=== PATIENT | female | born 1965 | race Caucasian/White ===

== ENCOUNTER → 2017-11-28 16:02 | Outpatient (CLI) | payer MEDICARE, MEDICAID, SELFPAY ==
--- NOTE | 2017-11-28 16:11 | XR_ITS ---
XR knee RT 3V HISTORY: ITS.REASON: RT KNEE PAIN ORDERING PHYSICIAN: Henny Mccloud PATIENT AGE: 52 years FINDINGS: There are mild osteoarthritic changes of the medial compartment. No fracture or dislocation. No lytic or blastic change. IMPRESSION: Mild osteoarthritis of the medial compartment
--- NOTE | 2017-11-28 16:11 | XR_ITS ---
XR chest 2V HISTORY: Cough ITS.REASON: ABNORMAL LUNG SOUNDS ORDERING PHYSICIAN: Henny Mccloud PATIENT AGE: 52 years COMPARISON: 11/07/2016 FINDINGS: The cardiomediastinal silhouette and pulmonary vascularity are within normal limits. The lungs are clear without infiltrates, suspicious nodules, or pleural effusions. No acute bony abnormalities. IMPRESSION: Negative chest, no acute finding
== END ==
PROVIDERS: PCP Physician Assistant; Visit Provider Physician Assistant
DX: M25.561 Pain in right knee (principal); R09.89 Other specified symptoms and signs involving the circulatory and respiratory systems
CPT/HCPCS: 71046; 73562

== ENCOUNTER → 2018-02-27 09:00 | Outpatient (CLI) | payer MEDICARE, MEDICAID, SELFPAY ==
--- NOTE | 2018-02-27 09:22 | XR_ITS ---
XR foot RT min 3V HISTORY: Right the pain and swelling ITS.REASON: HTN,ARCELIA FOOT PAIN ORDERING PHYSICIAN: Henny Mccloud PATIENT AGE: 52 years COMPARISON: None FINDINGS: There is [id number] hallux nodules with mild osteoarthritic change of the first metatarsophalangeal joint. A small band of hyperostosis is present at the base and medial aspect of the second metatarsal. There is flexion at the second and third toes. Small calcaneal spur is present at 10 mm. IMPRESSION: Hallux valgus with bunion formation and osteoarthritis of the first MTP joint with flexion deformity of the second and third toes
--- NOTE | 2018-02-27 09:22 | XR_ITS ---
XR foot LT min 3V HISTORY: Foot pain and swelling ITS.REASON: ARCELIA FOOT PAIN ORDERING PHYSICIAN: Henny Mccloud PATIENT AGE: 52 years COMPARISON: None FINDINGS: Minimal hallux valgus with minimal hypertrophic change at the distal first metatarsal. Minimal hyperostosis at the base of the second metatarsal medially. No fracture or dislocation. There is a prominent calcaneal spur at 15 mm. No bony erosion. IMPRESSION: Minimal hallux valgus with hypertrophic change at the distal first metatarsal and minimal osteoarthritic change of the first metatarsophalangeal joint with calcaneal spur
[2018-02-27 09:29] LABS: Basophils % 0.5 % (0.1-2.0); Eosinophils # 0.2 K/mm3 (0.0-0.4); Eosinophils % 3.1 % (0.1-12.0); Hematocrit 39.9 % (37.0-47.0); Hemoglobin 13.1 g/dL (12.2-16.2); Lymphocytes # 1.6 K/mm3 (0.7-4.5); Lymphocytes % 28.6 K/mm3 (10-50); Mean Corpuscular HGB Conc 32.8 g/dL (31.8-35.4); Mean Corpuscular Hemoglobin 29.6 pg (27.0-31.2); Mean Corpuscular Volume 90.3 fl (81-99); Mean Platelet Volume 8.7 fl (7.4-10.4); Monocytes # 0.2 K/mm3 (0.1-1.0); Monocytes % 4.1 % (1.7-9.3); Neutrophils # 3.6 K/mm3 (1.8-7.8); Neutrophils % 63.7 % (37.0-80.0); Platelet Count 261 K/mm3 (142-424); Red Blood Count 4.41 M/mm3 (4.20-5.40); Red Cell Distribution Width 13.2 % (11.5-17.5); White Blood Count 5.7 K/mm3 (4.8-10.8)
[2018-02-27 09:45] LABS: Hemoglobin A1C 5.9 % (0.0-7.0)
[2018-02-27 10:16] LABS: Alanine Aminotransferase 70 U/L (12-78); Albumin Level 3.8 gm/dL (3.4-5.0); Albumin/Globulin Ratio 1.2 (1.1-1.8); Alkaline Phosphatase 71 U/L (46-116); Anion Gap 11.3 mEq/L (5-15); Aspartate Amino Transferase 22 U/L (15-37); Bilirubin,Total 0.9 mg/dL (0.2-1.0); Blood Urea Nitrogen 15 mg/dL (7-18); Calcium 9.2 mg/dL (8.5-10.1); Carbon Dioxide 29 mmol/L (21.0-32.0); Chloride 108 mmol/L (98-107); Chol/HDL Ratio 3.7 (1-3.5); Cholesterol 173 mg/dL (140-200); Creatinine,Serum 0.88 mg/dL (0.55-1.02); Estimated Glomerular Filt Rate 68 ml/min (>60); GFR (African American) 82 ML/MIN (>60); Globulin 3.3 gm/dl (1.3-3.2); Glucose 109 mg/dL (74-106); HDL Cholesterol 47 mg/dL (29-89); LDL Cholesterol 108 mg/dL (0-130); Phosphorous 4.1 mg/dL (2.4-4.9); Potassium 4.3 mmoL/L (3.5-5.1); Sodium 144 mmol/L (136-145); Thyroid Stimulating Hormone 4.25 uIU/ml (0.358-3.740); Total Protein,Serum 7.1 gm/dL (6.4-8.2); Triglycerides 90 mg/dL (30-200); VLDL Cholesterol 18 mg/dL (0-40)
[2018-02-28 14:53] LABS: Vitamin D 25 Hydroxy 20.5 ng/mL (30.0-100.0)
== END ==
PROVIDERS: Visit Provider Physician Assistant
DX: E78.00 Pure hypercholesterolemia, unspecified (principal); R73.9 Hyperglycemia, unspecified; R06.02 Shortness of breath; E55.9 Vitamin D deficiency, unspecified; I10 Essential (primary) hypertension; R53.83 Other fatigue; M79.671 Pain in right foot; M79.672 Pain in left foot
CPT/HCPCS: 36415; 73630; 80053; 80061; 82652; 83036; 83735; 83880; 84100; 84443; 85025

== ENCOUNTER 2021-03-23 11:01 | Emergency (ER) | payer MEDICARE, MEDICAID, SELFPAY ==
[2021-03-23 11:02] VITALS: BP 143/73; PULSE 56; RESP 18; TEMP 36.8; O2SAT 98; BMI 45.1
--- NOTE | 2021-03-23 12:00 | HMH.EDUTC ---
[facility] [place] Disposition Clinical Impression: Sinusitis Qualifiers: Sinusitis location: unspecified location Chronicity: chronic Qualified Code(s): J32.9 - Chronic sinusitis, unspecified Disposition: Home, Self-Care Condition on Discharge: Good Instructions: DI for Sinusitis Additional Instructions: Drink plenty of fluids. Take tylenol or ibuprofen for pain or fever. Take the medications as directed. Follow up with your regular doctor. GO TO THE ER FOR ANY WORSENING SYMPTOMS Prescriptions: Benzonatate [Tessalon Perle 100mg Cap] 100 mg PO TIDP PRN #30 cap PRN Reason: Cough Transmission Status: Received by [facility] Azithromycin [Z-Kristofer 250mg Tab*] 250 mg PO UD DOSE PK #6 tab Transmission Status: Received by [employer] Referrals: Yaima Lima APRN [Primary Care Provider] - Forms: Work/School Release Time of Disposition: 12:04 Medical Decision Making - Medical Records Medical records reviewed: No: I reviewed the patient's medical records. - Jaime Inquiry Pt receiving controlled substance: No Vital Signs: 03/23/21 11:02 03/23/21 12:06 Temperature 98.3 F 98.3 F Temperature Source Oral Pulse Rate 56 L Pulse Rate [Right] 56 L Respiratory Rate 18 18 Blood Pressure 143/73 H Blood Pressure [Right Arm] 143/73 H Blood Pressure Mean [Right Arm] 96 02 Sat by Pulse Oximetry 98 - Lab Data Lab results reviewed: Yes: I reviewed the patient's lab results. [facility] [place] HPI - General Stated complaint: sinus problem Time Seen by Provider: 03/23/21 12:01 Description of Symptoms (Recalled from Triage Doc. by RN): pt c/o head congestion and runny nose HEENT Symptoms (Recalled from RN notes): Yes Resp Symptoms (Recalled from RN notes): Yes Skin Symptoms (Recalled from RN notes): No MS Symptoms (Recalled from RN notes): No Functional Status (Recalled from RN notes): na - History of Present Illness Provider Complaint: She c/o 3 days of sinus congeston and sinus pressure. She states that she is getting a sinus infection. She refuses a covid test today. - Related Data Home Medications Medication Instructions Recorded Confirmed levothyroxine 25 mcg tablet PO 30 Days #30 tab 04/10/18 omeprazole 40 mg capsule,delayed 40 mg PO DAILY 04/10/18 release Previous Rx's Medication Instructions Recorded Cyclobenzaprine HCl [Flexeril 10mg 10 mg PO TID PRN #15 tablet 05/14/18 tablet] Etodolac [Etodolac 200mg Cap*] 200 mg PO Q6HP PRN #20 cap 05/14/18 Azithromycin [Z-Kristofer 250mg Tab*] 250 mg PO UD DOSE PK #6 tab 03/23/21 Benzonatate [Tessalon Perle 100mg 100 mg PO TIDP PRN #30 cap 03/23/21 Cap] Allergies Allergy/AdvReac Type Severity Reaction Status Date / Time codeine Allergy Verified 05/14/18 15:32 - Worker's Comp Is this a Worker's Comp case?: No [facility] History - Hepatitis A Screen Drug use history?: No High risk sexual behaviors?: No History of sexually transmitted infection?: No Currently employed?: No Childcare worker?: No Do you have indoor plumbing?: Yes Do you have electricity?: Yes Attestation statement:: This patient has been screened for Hepatitis A risk factors. I have reviewed the patient's past medical history: Yes Other Surgeries: Yes: Cholecystectomy, Hernia Repair, Tubal Ligation, Other Comment: stomach - Social History Smoking Status: Never smoker Alcohol Intake: never Alcohol Intake Frequency:: other Family Hx:: No significant family history ROS Obtained: Yes All systems reviewed & no additional complaints - Constitutional Constitutional: Denies chills, Denies fever(s), Reports poor appetite, Reports malaise - Eyes Eyes: Denies eye discharge - ENT Ears, Nose, Mouth, and Throat: Reports as per HPI - Cardiovascular Cardiovascular: Denies chest pain - Respiratory Respiratory: Denies chest congestion, Reports cough, Denies dyspnea, Denies stridor, Denies wheezing - Integumentary/Breasts Skin/Breast: Denies rash Phy
[2021-03-23 12:06] VITALS: BP 143/73; PULSE 56; RESP 18; TEMP 36.8; O2SAT 98
== END 2021-03-23 12:22 | disposition home or self-care (01) ==
PROVIDERS: Emergency Provider Nurse Practitioner Family; PCP Nurse Practitioner Family
DX: J32.9 Chronic sinusitis, unspecified (principal)
CPT/HCPCS: G0463; 99202

== ENCOUNTER 2021-04-13 11:57 | Emergency (ER) | payer MEDICARE, MEDICAID, SELFPAY ==
[2021-04-13 13:05] VITALS: BP 143/71; PULSE 63; RESP 18; TEMP 36.8; O2SAT 97; BMI 49.9
[2021-04-13 13:48] VITALS: BP 143/71; PULSE 63; RESP 18; TEMP 36.8; O2SAT 97
--- NOTE | 2021-04-13 14:13 | HMH.EDUTC ---
[facility] [place] Clinical Impression: Sinusitis Qualifiers: Sinusitis location: unspecified location Chronicity: unspecified Qualified Code(s): J32.9 - Chronic sinusitis, unspecified Disposition: Home, Self-Care Condition on Discharge: Good Instructions: Sinusitis, DI for Sinusitis Additional Instructions: *Monitor Temp, Over the counter Motrin or Tylenol as directed/as needed Tylenol every 4 hours and Motrin every 6 hours (as long as your family doctor has told you that you can take it) for fever or pain. and straight to ER if unable to lower temp less than 101.0 after medication given *Warm salt water gargles may help to soothe the throat *Throat Lozenges *Warm fluids like tea with honey may help to soothe the throat *Sleep elevated *Humidifier/Vaporizer Start antibiotics and take as prescribed Follow up IMMEDIATELY for new or worsening symptoms or no Noticeable improvement over the next 48-72 hours. 911 for difficulty breathing or swallowing Prescriptions: Amoxicillin/Potassium Clav [Augmentin 875-125 Tablet] 1 tab PO Q12H 7 Days #14 tab Transmission Status: Pending to [facility] Referrals: Yaima Lima APRN [Primary Care Provider] - As needed Medical Decision Making - Jaime Inquiry Pt receiving controlled substance: No Jaime was queried for this patient: No Vital Signs: 04/13/21 13:05 04/13/21 13:48 Temperature 98.3 F 98.3 F Temperature Source Oral Pulse Rate 63 Pulse Rate [Right Brachial] 63 Respiratory Rate 18 18 Blood Pressure 143/71 H Blood Pressure [Right Arm] 143/71 H Blood Pressure Mean [Right Arm] 95 Blood Pressure Source [Right Arm] Automatic Cuff Blood Pressure Position [Right Arm] Sitting 02 Sat by Pulse Oximetry 97 Oxygen Delivery Method Room Air [facility] - General Stated complaint: sinus congestion/pain Time Seen by Provider: 04/13/21 14:13 Mode of Arrival: Ambulatory Source of Information: Patient Limitations: No Limitations Description of Symptoms (Recalled from Triage Doc. by RN): PATIENT C/O SINUS CONGESTION AND COUGH X 1 WEEK HEENT Symptoms (Recalled from RN notes): Yes Resp Symptoms (Recalled from RN notes): Yes Skin Symptoms (Recalled from RN notes): No MS Symptoms (Recalled from RN notes): No Functional Status (Recalled from RN notes): WNL - History of Present Illness Provider Complaint: Patient states that she has been having sinus pain and pressure for over a week with cough States that she feels like she may have a sinus infection and wanted to get checked - Related Data Home Medications Medication Instructions Recorded Confirmed levothyroxine 25 mcg tablet PO 30 Days #30 tab 04/10/18 omeprazole 40 mg capsule,delayed 40 mg PO DAILY 04/10/18 release Previous Rx's Medication Instructions Recorded Cyclobenzaprine HCl [Flexeril 10mg 10 mg PO TID PRN #15 tablet 05/14/18 tablet] Etodolac [Etodolac 200mg Cap*] 200 mg PO Q6HP PRN #20 cap 05/14/18 Azithromycin [Z-Kristofer 250mg Tab*] 250 mg PO UD DOSE PK #6 tab 03/23/21 Benzonatate [Tessalon Perle 100mg 100 mg PO TIDP PRN #30 cap 03/23/21 Cap] Amoxicillin/Potassium Clav 1 tab PO Q12H 7 Days #14 tab 04/13/21 [Augmentin 875-125 Tablet] Allergies Allergy/AdvReac Type Severity Reaction Status Date / Time codeine Allergy Verified 05/14/18 15:32 - Worker's Comp Is this a Worker's Comp case?: No [facility] History - Hepatitis A Screen Drug use history?: No High risk sexual behaviors?: No History of sexually transmitted infection?: No Currently employed?: No Childcare worker?: No Do you have indoor plumbing?: Yes Do you have electricity?: Yes Attestation statement:: This patient has been screened for Hepatitis A risk factors. I have reviewed the patient's past medical history: Yes Other Surgeries: Yes: Cholecystectomy, Hernia Repair, Tubal Ligation, Other Comment: stomach - Social History Smoking Status: Never smoker Alcohol Intake: never Alcohol Intak
== END 2021-04-13 14:29 | disposition home or self-care (01) ==
PROVIDERS: Emergency Provider Nurse Practitioner; PCP Nurse Practitioner Family
DX: J32.9 Chronic sinusitis, unspecified (principal)
CPT/HCPCS: G0463; 99202

== ENCOUNTER 2021-05-23 16:39 | Emergency (ER) | payer MEDICARE, MEDICAID, SELFPAY ==
[2021-05-23 18:04] VITALS: BP 183/108; PULSE 43; RESP 18; TEMP 36.4; O2SAT 100; BMI 46.7
--- NOTE | 2021-05-23 18:27 | HMH.EDUTC ---
[facility] [place] Clinical Impression: Sinusitis Qualifiers: Sinusitis location: unspecified location Chronicity: acute Recurrence: non-recurrent Qualified Code(s): J01.90 - Acute sinusitis, unspecified Disposition: Home, Self-Care Condition on Discharge: Good Instructions: DI for Sinusitis Additional Instructions: Drink plenty of fluids. Take tylenol or ibuprofen for pain or fever. Take the medications as directed. Follow up with your regular doctor. GO TO THE ER FOR ANY WORSENING SYMPTOMS Prescriptions: Amoxicillin/Potassium Clav [Augmentin 875-125 Tablet] 1 tab PO Q12H 10 Days #20 tab Transmission Status: Received by [employer] predniSONE [Prednisone 20mg Tab] 20 mg PO BID 4 Days #8 tab Transmission Status: Received by [employer] Benzonatate [Tessalon Perle 100mg Cap] 100 mg PO TIDP PRN #30 cap PRN Reason: Cough Transmission Status: Received by [employer] Referrals: Yaima Lima APRN [Primary Care Provider] - Medical Decision Making - Medical Records Medical records reviewed: No: I reviewed the patient's medical records. - Jaime Inquiry Pt receiving controlled substance: No Vital Signs: 05/23/21 18:04 05/23/21 18:53 Temperature 97.6 F 97.6 F Temperature Source Oral Pulse Rate 46 L Pulse Rate [Left] 43 L Respiratory Rate 18 18 Blood Pressure 187/96 H Blood Pressure [Right Arm] 183/108 H Blood Pressure Mean [Right Arm] 133 02 Sat by Pulse Oximetry 100 - Lab Data Lab results reviewed: Yes: I reviewed the patient's lab results. [facility] [place] HPI - General Stated complaint: possible sinus infection Time Seen by Provider: 05/23/21 18:27 Mode of Arrival: Ambulatory Source of Information: Patient Limitations: No Limitations Description of Symptoms (Recalled from Triage Doc. by RN): pt c/o of cough, congestion and sinus pressure. pt thinks she has a sinus infection. HEENT Symptoms (Recalled from RN notes): Yes (sinus pressure and drainage) Resp Symptoms (Recalled from RN notes): Yes (cough) Skin Symptoms (Recalled from RN notes): No MS Symptoms (Recalled from RN notes): No Functional Status (Recalled from RN notes): na - History of Present Illness Provider Complaint: She states that she has had sinus congestion and a cough for the past 3 days. - Related Data Home Medications Medication Instructions Recorded Confirmed levothyroxine 25 mcg tablet PO 30 Days #30 tab 04/10/18 omeprazole 40 mg capsule,delayed 40 mg PO DAILY 04/10/18 release Previous Rx's Medication Instructions Recorded Cyclobenzaprine HCl [Flexeril 10mg 10 mg PO TID PRN #15 tablet 05/14/18 tablet] Etodolac [Etodolac 200mg Cap*] 200 mg PO Q6HP PRN #20 cap 05/14/18 Azithromycin [Z-Kristofer 250mg Tab*] 250 mg PO UD DOSE PK #6 tab 03/23/21 Benzonatate [Tessalon Perle 100mg 100 mg PO TIDP PRN #30 cap 03/23/21 Cap] Amoxicillin/Potassium Clav 1 tab PO Q12H 7 Days #14 tab 04/13/21 [Augmentin 875-125 Tablet] Amoxicillin/Potassium Clav 1 tab PO Q12H 10 Days #20 tab 05/23/21 [Augmentin 875-125 Tablet] Benzonatate [Tessalon Perle 100mg 100 mg PO TIDP PRN #30 cap 05/23/21 Cap] predniSONE [Prednisone 20mg 20 mg PO BID 4 Days #8 tab 05/23/21 Tab] Allergies Allergy/AdvReac Type Severity Reaction Status Date / Time codeine Allergy Verified 05/14/18 15:32 - Worker's Comp Is this a Worker's Comp case?: No [facility] History - Hepatitis A Screen Drug use history?: No High risk sexual behaviors?: No History of sexually transmitted infection?: No Currently employed?: No Childcare worker?: No Do you have indoor plumbing?: Yes Do you have electricity?: Yes Attestation statement:: This patient has been screened for Hepatitis A risk factors. I have reviewed the patient's past medical history: Yes Other Surgeries: Yes: Cholecystectomy, Hernia Repair, Tubal Ligation, Other Comment: stomach - Social History Smoking Status: Never smoker Alcohol Intake:
[2021-05-23 18:53] VITALS: BP 187/96; PULSE 46; RESP 18; TEMP 36.4
== END 2021-05-23 18:57 | disposition home or self-care (01) ==
PROVIDERS: Emergency Provider Nurse Practitioner Family; PCP Nurse Practitioner Family
DX: J01.90 Acute sinusitis, unspecified (principal)
CPT/HCPCS: G0463; 99202

== ENCOUNTER 2021-12-15 09:22 | Emergency (ER) | payer MEDICARE, MEDICAID, SELFPAY ==
[2021-12-15 10:00] VITALS: BP 131/86; PULSE 51; RESP 19; TEMP 36.6; O2SAT 99; BMI 53.1
--- NOTE | 2021-12-15 10:39 | HMH.EDUTC ---
[facility] [place] Disposition Clinical Impression: Adverse effect of metoprolol Qualifiers: Encounter type: initial encounter Qualified Code(s): T44.7X5A - Adverse effect of beta-adrenoreceptor antagonists, initial encounter Disposition: Still a Patient Condition on Discharge: Fair Referrals: Yaima Lima APRN [Primary Care Provider] - Time of Disposition: 10:54 Medical Decision Making - Medical Records Medical records reviewed: No: I reviewed the patient's medical records. - Jaime Inquiry Pt receiving controlled substance: No Vital Signs: 12/15/21 10:00 Temperature 97.8 F Temperature Source Oral Pulse Rate [Left Brachial] 51 L Respiratory Rate 19 Blood Pressure [Left Arm] 131/86 Blood Pressure Mean [Left Arm] 101 Blood Pressure Source [Left Arm] Automatic Cuff Blood Pressure Position [Left Arm] Sitting 02 Sat by Pulse Oximetry 99 Oxygen Delivery Method Room Air Medical Decision Narrative: she was transferred to the er due to her hr=51 and she has taken a double dose of her metoprolol and other medications. [facility] [place] HPI - General Stated complaint: took medicatioins twice Time Seen by Provider: 12/15/21 10:00 Mode of Arrival: Ambulatory Source of Information: Patient Limitations: No Limitations Description of Symptoms (Recalled from Triage Doc. by RN): PATIENT STATES SHE TOOK HER DAILY MEDICATIONS TWICE THIS MORNING BY MISTAKE (METOPROLOL, LISINOPRIL, CETIRIZINE, AND ASPIRIN). SHE STATES THE NURSE AT HER PCP OFFICE RECOMMENDED SHE COME HERE TO BE MONITORED HEENT Symptoms (Recalled from RN notes): No Resp Symptoms (Recalled from RN notes): No Skin Symptoms (Recalled from RN notes): No MS Symptoms (Recalled from RN notes): No Functional Status (Recalled from RN notes): WNL - History of Present Illness Provider Complaint: She accidentily took her morning medications twice this morning. She took lisinopril, metotoprol, zyrtec and a baby aspirin. She also took 1000 mg of tylenol twice (2000 mg total). Her first dose was around 7:00 am. Her second dose was around 8:30 am. She denies any complaints but her pcp wanted her to go to the er for be monitored for a little while. - Related Data Home Medications Medication Instructions Recorded Confirmed Acetaminophen [Tylenol 500mg 1,000 mg PO DAILY 12/15/21 12/15/21 tablet] Aspirin [Aspirin 81mg chewable 81 mg PO DAILY 12/15/21 12/15/21 tab] Cetirizine HCl [Zyrtec] 10 mg PO DAILY 12/15/21 12/15/21 Metoprolol Succinate [Metoprolol 25 mg PO DAILY 12/15/21 12/15/21 Succinate 25mg Tablet*] Multivit-Min/Iron/Folic/Lutein 1 each PO DAILY 12/15/21 12/15/21 [Centrum Silver Women Tablet] lisinopriL [Lisinopril] 20 mg PO DAILY 12/15/21 12/15/21 Allergies Allergy/AdvReac Type Severity Reaction Status Date / Time codeine Allergy Verified 05/14/18 15:32 - Worker's Comp Is this a Worker's Comp case?: No [facility] History - Hepatitis A Screen Attestation statement:: This patient has been screened for Hepatitis A risk factors. I have reviewed the patient's past medical history: Yes Other Surgeries: Yes: Cholecystectomy, Hernia Repair, Tubal Ligation, Other Comment: stomach - Social History Smoking Status: Never smoker Alcohol Intake: never Alcohol Intake Frequency:: other Occupational Status: other Family Hx:: No significant family history ROS Obtained: Yes All systems reviewed & no additional complaints - Constitutional Constitutional: Reports system reviewed and no additional complaints, except as docu, Denies chills, Denies fever(s) - Eyes Eyes: Denies blind spots, Denies blurry vision, Denies change in vision, Denies diplopia, Denies eye discharge - ENT Ears, Nose, Mouth, and Throat: Denies dizziness, Denies otalgia, Denies sore throat, Denies vertigo/dizziness - Cardiovascular Cardiovascular: Denies chest pain - Respiratory Respiratory: Denies chest congestion, Denies cough, Denies dyspnea, Denies stridor, Denies wheezing - Gastr
--- NOTE | 2021-12-15 10:55 | PC.NURSE ---
CRYSTAL Hamilton at [facility]
[2021-12-15 11:02] VITALS: BP 143/81; PULSE 80; RESP 18; TEMP 36.8; O2SAT 99; BMI 52.9
--- NOTE | 2021-12-15 11:07 | PC.NURSE ---
ED MD at
--- NOTE | 2021-12-15 11:10 | HMH.EDGENADL ---
ED Disposition Clinical Impression: Accidental drug ingestion Qualifiers: Encounter type: initial encounter Qualified Code(s): T50.901A - Poisoning by unspecified drugs, medicaments and biological substances, accidental (unintentional), initial encounter Disposition: Home, Self-Care Condition on Discharge: Good Additional Instructions: Resume your usual dose of medications. Referrals: Yaima Lima APRN [Primary Care Provider] - - Critical Care Critical Care Time: No Attestation: On 12/15/21, the high probability of a clinically significant, sudden or life threatening deterioration of the following system(s) required my full and direct attention, intervention and personal management. The time I documented below is in addition to time spent performing reported procedures but includes the following listed in this critical care notation. Medical Decision Making - Jaime Inquiry Pt receiving controlled substance: No Vital Signs: 12/15/21 10:00 12/15/21 11:02 12/15/21 11:20 Temperature 97.8 F 98.2 F Temperature Source Oral Oral Pulse Rate [Left Brachial] 51 L 80 74 Respiratory Rate 19 18 18 Blood Pressure [Left Arm] 131/86 143/81 H 130/47 L Blood Pressure Mean [Left Arm] 101 101 74 Blood Pressure Source [Left Arm] Automatic Cuff Automatic Cuff Automatic Cuff Blood Pressure Position [Left Arm] Sitting Sitting Sitting 02 Sat by Pulse Oximetry 99 99 97 Oxygen Delivery Method Room Air Room Air Room Air 12/15/21 12:01 Temperature Temperature Source Pulse Rate [Left Brachial] 73 Respiratory Rate 21 Blood Pressure [Left Arm] 126/56 L Blood Pressure Mean [Left Arm] 79 Blood Pressure Source [Left Arm] Blood Pressure Position [Left Arm] 02 Sat by Pulse Oximetry 98 Oxygen Delivery Method Room Air - Reevaluation(s) Time: 12:27 Reevaluation #1: Remains in ventricular bigeminy, which is her baseline per patient. Asymptomatic. I feel she can be discharged. Medical Decision Narrative: None of the medications that she took constitute a toxic dose. She will be monitored until 4 hours post ingestion and discharged if stable. I do not expect any adverse effects since all of the medications that she took are in usual therapeutic dosages except for an extra 1000 mg of acetaminophen, but this also is not a toxic dose. General Adult HPI - General Stated complaint: took medicatioins twice Time Seen by Provider: 12/15/21 11:03 Mode of Arrival: Ambulatory Source of Information: Patient Limitations: No Limitations Description of Symptoms (Recalled from ER Triage Doc. by RN): PATIENT STATES SHE TOOK HER DAILY MEDICATIONS TWICE THIS MORNING BY MISTAKE (METOPROLOL, LISINOPRIL, CETIRIZINE, AND ASPIRIN). SHE STATES THE NURSE AT HER PCP OFFICE RECOMMENDED SHE COME HERE TO BE MONITORED - History of Present Illness HPI narrative: Sent from the urgent treatment center. She accidentally took a second dose of her usual daily medications this morning. Doses were about 1 hour apart. She is concerned because she took both blood pressure medication and a heart medication. Her usual doses of lisinopril 20 mg and metoprolol 25 mg daily. She took an extra of each of these. Also took an extra 1000 mg of acetaminophen. She called her primary care provider and spoke with a nurse who told her that she should come to the emergency room to be monitored . Currently she is asymptomatic except feels slightly lightheaded. She has a history of PVCs and sees a lead machinist in [place]. - Related Data Home Medications Medication Instructions Recorded Confirmed Acetaminophen [Tylenol 500mg 1,000 mg PO DAILY 12/15/21 12/15/21 tablet] Aspirin [Aspirin 81mg chewable 81 mg PO DAILY 12/15/21 12/15/21 tab] Cetirizine HCl [Zyrtec] 10 mg PO DAILY 12/15/21 12/15/21 Metoprolol Succinate [Metoprolol 25 mg PO DAILY 12/15/21 12/15/21 Succinate 25mg Tablet*] Multivit-Min/Iron/Folic/Lutein 1 each PO DAILY 12/15/21 12/15/21 [
[2021-12-15 11:20] VITALS: BP 130/47; PULSE 74; RESP 18; O2SAT 97
[2021-12-15 12:01] VITALS: BP 126/56; PULSE 73; RESP 21; O2SAT 98
--- NOTE | 2021-12-15 12:28 | PC.NURSE ---
Checked on patient; she has no needs at this time. She is sitting up in a chair, playing on her cell phone
[2021-12-15 12:30] VITALS: BP 131/74; PULSE 79; RESP 15; TEMP 36.7; O2SAT 98
== END 2021-12-15 12:31 | disposition home or self-care (01) ==
LOC: UTC 10:54 → ER 10:54
PROVIDERS: Emergency Provider Emergency Medicine; PCP Nurse Practitioner Family
DX: T44.7X1A Poisoning by beta-adrenoreceptor antagonists, accidental (unintentional), initial encounter (principal); T46.4X1A Poisoning by angiotensin-converting-enzyme inhibitors, accidental (unintentional), initial encounter; T45.0X1A Poisoning by antiallergic and antiemetic drugs, accidental (unintentional), initial encounter; T39.1X1A Poisoning by 4-Aminophenol derivatives, accidental (unintentional), initial encounter; R42 Dizziness and giddiness; I49.8 Other specified cardiac arrhythmias; Z79.52 Long term (current) use of systemic steroids; Z79.899 Other long term (current) drug therapy; Z88.5 Allergy status to narcotic agent
CPT/HCPCS: 99285

== ENCOUNTER 2021-12-25 10:47 | Emergency (ER) | payer MEDICARE, MEDICAID, SELFPAY ==
[2021-12-25 12:30] VITALS: BP 131/89; PULSE 71; RESP 19; TEMP 36.6; O2SAT 97; BMI 48.4
--- NOTE | 2021-12-25 12:49 | HMH.EDUTC ---
[facility] – [place] Disposition Clinical Impression: Sinusitis Qualifiers: Sinusitis location: unspecified location Chronicity: unspecified Qualified Code(s): J32.9 - Chronic sinusitis, unspecified Disposition: Home, Self-Care Condition on Discharge: Good Instructions: Sinusitis, DI for Sinusitis Additional Instructions: *Monitor Temp, Over the counter Motrin or Tylenol as directed/as needed Tylenol every 4 hours and Motrin every 6 hours (as long as your family doctor has told you that you can take it) for fever or pain. and straight to ER if unable to lower temp less than 101.0 after medication given *Warm salt water gargles may help to soothe the throat *Throat Lozenges *Warm fluids like tea with honey may help to soothe the throat *Sleep elevated *Humidifier/Vaporizer Take medication as prescribed Follow up IMMEDIATELY for new or worsening symptoms or no Noticeable improvement over the next 48-72 hours. 911 for difficulty breathing or swallowing Prescriptions: Amoxicillin/Potassium Clav [Amox-Clav 875-125 mg Tablet] 1 tab PO BID #14 tab Transmission Status: Pending to [facility] predniSONE [Prednisone 20mg Tab] 20 mg PO BID #10 tab Transmission Status: Pending to [facility] Referrals: Yaima Lima APRN [Primary Care Provider] - As needed Time of Disposition: 12:55 Medical Decision Making - Jaime Inquiry Pt receiving controlled substance: No Jaime was queried for this patient: No Vital Signs: 12/25/21 12:30 Temperature 97.9 F Temperature Source Oral Pulse Rate [Right Brachial] 71 Respiratory Rate 19 Blood Pressure [Right Arm] 131/89 Blood Pressure Mean [Right Arm] 103 Blood Pressure Source [Right Arm] Automatic Cuff Blood Pressure Position [Right Arm] Sitting 02 Sat by Pulse Oximetry 97 Oxygen Delivery Method Room Air Medical Decision Narrative: Patient states that she has taken augmentin and prednisone in the past without complications or reactions [facility] [place] HPI - General Stated complaint: sinus congestion Time Seen by Provider: 12/25/21 12:50 Mode of Arrival: Ambulatory Source of Information: Patient Limitations: No Limitations Description of Symptoms (Recalled from Triage Doc. by RN): PATIENT C/O SINUS PRESSURE X 4 DAYS HEENT Symptoms (Recalled from RN notes): Yes Resp Symptoms (Recalled from RN notes): No Skin Symptoms (Recalled from RN notes): No MS Symptoms (Recalled from RN notes): No Functional Status (Recalled from RN notes): WNL - History of Present Illness Provider Complaint: Patient states that she started about over a week ago with sinus congestion and pressure but for the last 4 days it has got worse States that she is having pressure behind her eyes with drainage in the back of her throat like she gets when she has a sinus infection - Related Data Home Medications Medication Instructions Recorded Confirmed Aspirin [Aspirin 81mg chewable 81 mg PO DAILY 12/15/21 12/15/21 tab] Cetirizine HCl [Zyrtec] 10 mg PO DAILY 12/15/21 12/15/21 Metoprolol Succinate [Metoprolol 25 mg PO DAILY 12/15/21 12/15/21 Succinate 25mg Tablet*] Multivit-Min/Iron/Folic/Lutein 1 each PO DAILY 12/15/21 12/15/21 [Centrum Silver Women Tablet] lisinopriL [Lisinopril] 20 mg PO DAILY 12/15/21 12/15/21 Previous Rx's Medication Instructions Recorded Amoxicillin/Potassium Clav 1 tab PO BID #14 tab 12/25/21 [Amox-Clav 875-125 mg Tablet] predniSONE [Prednisone 20mg 20 mg PO BID #10 tab 12/25/21 Tab] Allergies Allergy/AdvReac Type Severity Reaction Status Date / Time codeine Allergy Verified 05/14/18 15:32 - Worker's Comp Is this a Worker's Comp case?: No [facility] History - Hepatitis A Screen Attestation statement:: This patient has been screened for Hepatitis A risk factors. I have reviewed the patient's past medical history: Yes Other Surgeries: Yes: Cholecystectomy, Hernia Repair, Tubal Ligation, Other Comment: stomach - Social History S
[2021-12-25 12:53] VITALS: BP 131/89; PULSE 71; RESP 19; TEMP 36.6; O2SAT 97
== END 2021-12-25 12:54 | disposition home or self-care (01) ==
PROVIDERS: Emergency Provider Nurse Practitioner; PCP Nurse Practitioner Family
DX: J32.9 Chronic sinusitis, unspecified (principal); I10 Essential (primary) hypertension; Z88.5 Allergy status to narcotic agent; J02.9 Acute pharyngitis, unspecified
CPT/HCPCS: 99212; G0463

== ENCOUNTER 2022-12-13 09:06 | Emergency (ER) | payer MEDICARE, MEDICAID, SELFPAY ==
[2022-12-13 09:25] VITALS: BP 147/76; PULSE 70; RESP 16; TEMP 36.6; O2SAT 96; BMI 52.6
--- NOTE | 2022-12-13 09:47 | EXP.UTC ---
Discharge Plan Disposition Patient Disposition: Home, Self-Care Condition: Good Prescriptions Prescriptions: New benzonatate [benzonatate] 100 mg capsule 100 mg PO TIDP PRN (Reason: Cough) Qty: 30 0RF amoxicillin-pot clavulanate 875-125 mg Tablet 1 tab PO Q12H Qty: 20 0RF methylprednisolone 4 mg Tablets,Dose Pack 4 mg PO DIRECTED Qty: 21 0RF No Action lisinopril 20 MG tablet 20 mg PO DAILY aspirin 81 MG tablet,chewable 81 mg PO DAILY metoprolol succinate 25 MG tablet extended release 24 hr 25 mg PO DAILY cetirizine 10 MG capsule 10 mg PO DAILY fuacufiq-igl-iatk-FA-lutein 1 EACH tablet 1 each PO DAILY prednisone 20 MG tablet 20 mg PO BID Qty: 10 0RF amoxicillin-pot clavulanate 1 EACH tablet 1 tab PO BID Qty: 14 0RF Referrals Follow up/Referrals: Meseret Lemus APRN [Primary Care Provider] - See instructions Activity Restrictions/Add. Instructions Additional Instructions/Restrictions: Drink plenty of fluids. Take tylenol or ibuprofen for pain or fever. Take the medications as directed. Follow up with your regular doctor. GO TO THE ER FOR ANY WORSENING SYMPTOMS Clinical Impressions Clinical Impression: Sinusitis Instructions Patient Instructions: Sinusitis, DI for Sinusitis Discharge ED Provider: George Sebastian [facility] General Stated complaint: Congestion, drainage, headache Mode of Arrival: Ambulatory Source of Information: Patient Limitations: No Limitations Time Seen by Provider: 12/13/22 09:30 Description of Symptoms (Recalled from Triage Doc. by RN): pt c/o sinus congestion and drainage x1wk HEENT Symptoms (Recalled from RN notes): Yes Resp Symptoms (Recalled from RN notes): No Skin Symptoms (Recalled from RN notes): No MS Symptoms (Recalled from RN notes): No Functional Status (Recalled from RN notes): wnl History of Present Illness Provider Complaint: She c/o worsening sinus congestion, cough, and sore throat for the past 1 week. Related Data Home Medications Medication Instructions Recorded Confirmed aspirin 81 mg chewable tablet 81 mg PO DAILY Heart disease 12/15/21 12/25/21 cetirizine 10 mg capsule 10 mg PO DAILY Allergy symptoms 12/15/21 12/25/21 lisinopril 20 mg tablet 20 mg PO DAILY Hypertension 12/15/21 12/25/21 metoprolol succinate 25 mg 25 mg PO DAILY Heart 12/15/21 12/25/21 tablet,extended release 24 hr multivit with 1 each PO DAILY Supplement 12/15/21 12/25/21 ibubmvlo-fdac-WG-lutein 8 mg iron-400 mcg-300 mcg tablet Previous Rx's Medication Instructions Recorded amoxicillin 875 mg-potassium 1 tab PO BID #14 tabs 12/25/21 clavulanate 125 mg tablet prednisone 20 mg tablet 20 mg PO BID #10 tabs 12/25/21 amoxicillin 875 mg-potassium 1 tab PO Q12H #20 tabs 12/13/22 clavulanate 125 mg tablet benzonatate 100 mg capsule 100 mg PO TIDP PRN Cough #30 caps 12/13/22 methylprednisolone 4 mg tablets in 4 mg PO DIRECTED #21 tabs 12/13/22 a dose pack Allergies Allergy/AdvReac Type Severity Reaction Status Date / Time codeine Allergy Verified 12/13/22 09:27 Worker's Comp Is this a Worker's Comp case?: No [facility] Disclaimer: The information contained in this section may have been updated after the patient was seen, as this information can be updated by other users. Social History Smoking Status: Never smoker alcohol intake: never current occupational status: other Travel in the last 8 weeks: None ROS Obtained: Yes All systems reviewed & no additional complaints except as documented Constitutional Constitutional: Reports poor appetite Eyes Eyes: Reports system reviewed and no additional complaints, except as documented ENT Ears, Nose, Mouth, and Throat: Reports as per HPI Cardiovascular Cardiovascular: Reports system reviewed and no additional complaints, except as documented and Denies chest pain Respiratory Resp
[2022-12-13 10:00] VITALS: BP 147/76; PULSE 70; RESP 16; TEMP 36.6
== END 2022-12-13 10:07 | disposition home or self-care (01) ==
PROVIDERS: Emergency Provider Nurse Practitioner Family; PCP Nurse Practitioner Family
DX: J01.90 Acute sinusitis, unspecified (principal); R07.0 Pain in throat
CPT/HCPCS: 99212; 99214; G0463

== ENCOUNTER 2023-01-27 15:06 | Emergency (ER) | payer MEDICARE, MEDICAID, SELFPAY ==
[2023-01-27 15:15] VITALS: BP 142/80; PULSE 76; RESP 18; TEMP 36.8; O2SAT 96; BMI 54.0
--- NOTE | 2023-01-27 15:27 | EXP.UTC ---
Discharge Plan Disposition Patient Disposition: Home, Self-Care Condition: Good Prescriptions Prescriptions: New amoxicillin-pot clavulanate 875-125 mg Tablet 1 tab PO Q12H Qty: 14 0RF fluticasone propionate [Flonase Allergy Relief] 50 mcg/actuation spray,suspension 1 - 2 spray intranasal DAILY Qty: 16 0RF Rx Instructions: administer into each nostril No Action lisinopril 20 MG tablet 20 mg PO DAILY metoprolol succinate 25 MG tablet extended release 24 hr 25 mg PO DAILY montelukast 10 mg tablet 10 mg PO DAILY Referrals Follow up/Referrals: Meseret Lemus APRN [Primary Care Provider] - See instructions Activity Restrictions/Add. Instructions Additional Instructions/Restrictions: *Increase fluids. Water not Soda or Tea *Start antibiotic immediately and be sure to take as ordered for the FULL length of time although you should start to see improvement over the next 48 hours *Be SURE to follow up anytime for new or worsening symptoms with your family doctor. AND in 48 hours for urine culture results with your family doctor, if you do not have a doctor then you may call back to the [facility] for urine culture results and further treatment. We do recommend that you choose and establish care with a Primary Care Physician. ?AND follow up with them ?in 10-14 days to repeat UA to ensure infection is resolved and blood no longer present *Be sure to let your PCP know that we sent urine cultures from the [facility] so they can follow up to ensure that you area the on the correct antibiotic Call your doctor office and make appointment for 48 hours (2 days from today) ?to follow up and get the results of your urine culture and further treatment Take medication as prescribed Use Flonase as prescribed Clinical Impressions Clinical Impression: Sinusitis, UTI (urinary tract infection) Instructions Patient Instructions: DI for Sinusitis, Sinusitis, DI for Urinary Tract Infection (UTI), Amoxicillin and Clavulanic Acid Discharge ED Provider: Tamika Lorenzo [facility] [place] HPI General Stated complaint: Sinus problems Mode of Arrival: Ambulatory Source of Information: Patient Limitations: No Limitations Time Seen by Provider: 01/27/23 15:27 Description of Symptoms (Recalled from Triage Doc. by RN): PATIENT C/O SINUS PRESSURE X 1 WEEK AND FREQUENT URINATION X 2 DAYS HEENT Symptoms (Recalled from RN notes): Yes Resp Symptoms (Recalled from RN notes): No Skin Symptoms (Recalled from RN notes): No MS Symptoms (Recalled from RN notes): No Functional Status (Recalled from RN notes): WNL History of Present Illness Provider Complaint: Patient states that she has been having sinus pain and pressure along with pressure behind her eyes and for the last couple of days she has been having urinary frequency and urgency States that it was feeling worse today and she felt like she was going to the bathroom alot so she came in to get checked Related Data Home Medications Medication Instructions Recorded Confirmed lisinopril 20 mg tablet 20 mg PO DAILY Hypertension 12/15/21 01/27/23 metoprolol succinate 25 mg 25 mg PO DAILY Hypertension 12/15/21 01/27/23 tablet,extended release 24 hr montelukast 10 mg tablet 10 mg PO DAILY Allergy symptoms 01/27/23 01/27/23 Previous Rx's Medication Instructions Recorded amoxicillin 875 mg-potassium 1 tab PO Q12H #14 tabs 01/27/23 clavulanate 125 mg tablet fluticasone propionate 50 1 - 2 spray intranasal DAILY #16 01/27/23 mcg/actuation nasal grams spray,suspension (Flonase Allergy Relief) Allergies Allergy/AdvReac Type Severity Reaction Status Date / Time codeine Allergy Verified 12/13/22 09:27 Worker's Comp Is this a Worker's Comp case?: No [facility] Disclaimer: The information contained in this section may have been updated after the patient was seen, as this information can be updated by other users. Medical History (Updated 01/27/23 @ 15:36 by Tamika Lorenzo APRN)
[2023-01-27 15:29] LABS: Apearance,Urine Cloudy (Clear); Bilirubin,Urine Negative (Negative); Blood, Urine Negative (Negative); Color,Urine Dark Yellow (Yellow); Glucose,Urine (UA) Negative (Negative); Ketones,Urine TRACE (Negative); PH,Urine 5.5 (5.0-8.5); Protein,Urine Trace (Negative)
[2023-01-27 15:30] LABS: UTC Leukocyte Esterase,Urine Trace (Negative); UTC Nitrate,Urine Negative (Negative); Urobilinogen,Urine 0.2 EU/dl (0.2)
[2023-01-27 15:50] VITALS: BP 142/80; PULSE 76; RESP 18; TEMP 36.8; O2SAT 96
== END 2023-01-27 15:54 | disposition home or self-care (01) ==
PROVIDERS: Emergency Provider Nurse Practitioner; PCP Nurse Practitioner Family
DX: J01.90 Acute sinusitis, unspecified (principal); N39.0 Urinary tract infection, site not specified; I10 Essential (primary) hypertension
CPT/HCPCS: 81003; 87086; 99212; 99214; G0463

== ENCOUNTER → 2023-04-02 11:14 | Outpatient (CLI) | payer MEDICARE, MEDICAID, SELFPAY ==
[2023-04-02 11:51] LABS: Basophils # 0.1 K/mm3 (0-0.2); Basophils % 0.9 % (0.1-2.0); Eosinophils # 0.3 K/mm3 (0.0-0.4); Eosinophils % 3.7 % (0.1-12.0); Hematocrit 41.7 % (37.0-47.0); Hemoglobin 13.8 g/dL (12.2-16.2); Lymphocytes # 2.2 K/mm3 (0.7-4.5); Lymphocytes % 31.7 % (10-50); Mean Corpuscular Hemoglobin 31.9 pg (27.0-31.2); Mean Corpuscular Volume 96.7 fl (81-99); Mean Platelet Volume 9.1 fl (7.4-10.4); Monocytes # 0.4 K/mm3 (0.1-1.0); Monocytes % 6.1 % (1.7-9.3); Neutrophils # 3.9 K/mm3 (1.8-7.8); Neutrophils % 57.6 % (37.0-80.0); Platelet Count 246 K/mm3 (142-424); Red Blood Count 4.31 M/mm3 (4.20-5.40); Red Cell Distribution Width 12.9 % (11.5-17.5); White Blood Count 6.8 K/mm3 (4.8-10.8)
[2023-04-02 16:37] LABS: Anion Gap 15.1 mEq/L (5-15); Blood Urea Nitrogen 17 mg/dl (7-17); Calcium 9.8 mg/dl (8.4-10.2); Carbon Dioxide 29 mmol/L (22.0-30.0); Chloride 103 mmol/L (98-107); Estimated Glomerular Filt Rate 74 ml/min (>60); GFR (African American) 89 ML/MIN (>60); Glucose 88 mg/dl (74-100); Potassium 5.1 mmoL/L (3.5-5.1); Sodium 142 mmol/L (136-145)
[2023-04-02 17:08] LABS: Thyroid Stimulating Hormone 0.19 uIU/mL (0.465-4.68)
== END ==
PROVIDERS: Visit Provider Nurse Practitioner Family
DX: I34.0 Nonrheumatic mitral (valve) insufficiency (principal); R00.2 Palpitations
CPT/HCPCS: 36415; 80048; 84443; 85025

== ENCOUNTER 2023-04-13 11:59 | Emergency (ER) | payer MEDICARE, MEDICAID, SELFPAY ==
[2023-04-13 12:05] VITALS: BP 138/74; PULSE 68; RESP 18; TEMP 36.9; O2SAT 97; BMI 50.7
--- NOTE | 2023-04-13 12:16 | EXP.UTC ---
Discharge Plan Disposition Patient Disposition: Home, Self-Care Condition: Good Prescriptions Prescriptions: New benzonatate 200 mg capsule 200 mg PO BID PRN (Reason: cough) Qty: 30 0RF amoxicillin [amoxicillin] 875 mg tablet 875 mg PO Q12H Qty: 20 0RF methylprednisolone 4 mg Tablets,Dose Pack 4 mg PO DIRECTED Qty: 21 0RF No Action lisinopril 20 MG tablet 20 mg PO DAILY metoprolol succinate 25 MG tablet extended release 24 hr 25 mg PO DAILY montelukast 10 mg tablet 10 mg PO DAILY Referrals Follow up/Referrals: Provider,Referral, MD [Primary Care Provider] - See instructions Activity Restrictions/Add. Instructions Additional Instructions/Restrictions: Drink plenty of fluids. Take tylenol or ibuprofen for pain or fever. Take the medications as directed. Follow up with your regular doctor. GO TO THE ER FOR ANY WORSENING SYMPTOMS Clinical Impressions Clinical Impression: Sinusitis Instructions Patient Instructions: Sinusitis, DI for Sinusitis Discharge ED Provider: George Sebastian [facility] General Stated complaint: stuffy, congested,headache Mode of Arrival: Ambulatory Source of Information: Patient Limitations: No Limitations Time Seen by Provider: 04/13/23 12:16 Description of Symptoms (Recalled from Triage Doc. by RN): Sinus congestion, cough, and sneezing HEENT Symptoms (Recalled from RN notes): Yes Resp Symptoms (Recalled from RN notes): No Skin Symptoms (Recalled from RN notes): No MS Symptoms (Recalled from RN notes): No Functional Status (Recalled from RN notes): n/a History of Present Illness Provider Complaint: She states that for the past 5 days she has had sinus congestion and a cough. Related Data Home Medications Medication Instructions Recorded Confirmed lisinopril 20 mg tablet 20 mg PO DAILY Hypertension 12/15/21 04/13/23 metoprolol succinate 25 mg 25 mg PO DAILY Hypertension 12/15/21 04/13/23 tablet,extended release 24 hr montelukast 10 mg tablet 10 mg PO DAILY Allergy symptoms 01/27/23 04/13/23 Previous Rx's Medication Instructions Recorded amoxicillin 875 mg tablet 875 mg PO Q12H #20 tabs 04/13/23 benzonatate 200 mg capsule 200 mg PO BID PRN cough #30 caps 04/13/23 methylprednisolone 4 mg tablets in 4 mg PO DIRECTED #21 tabs 04/13/23 a dose pack Allergies Allergy/AdvReac Type Severity Reaction Status Date / Time codeine Allergy Verified 04/13/23 12:15 Worker's Comp Is this a Worker's Comp case?: No [facility] Disclaimer: The information contained in this section may have been updated after the patient was seen, as this information can be updated by other users. Medical History (Updated 04/13/23 @ 12:48 by George Sebastian APRN) Hypertension Surgical History (Updated 01/27/23 @ 15:28 by Irene Olivera RN) History of cholecystectomy History of tubal ligation Social History Smoking Status: Never smoker alcohol intake: never current occupational status: other Travel in the last 8 weeks: None ROS Obtained: Yes All systems reviewed & no additional complaints except as documented Constitutional Constitutional: Reports poor appetite Eyes Eyes: Reports system reviewed and no additional complaints, except as documented ENT Ears, Nose, Mouth, and Throat: Reports as per HPI Cardiovascular Cardiovascular: Reports system reviewed and no additional complaints, except as documented and Denies chest pain Respiratory Respiratory: Denies shortness of breath, Denies chest congestion, Reports cough, Denies stridor and Denies wheezing Gastrointestinal Gastrointestingal: Reports system reviewed and no additional complaints, except as documented; Denies abdominal pain, diarrhea or vomiting Musculoskeletal Musculoskeletal: Reports system reviewed and no additional complaints, except as documented and Denies arthralgias Integumentary/Breasts Skin/Breast:
[2023-04-13 12:54] VITALS: BP 138/74; PULSE 68; RESP 18; TEMP 36.4; O2SAT 97
== END 2023-04-13 12:54 | disposition home or self-care (01) ==
PROVIDERS: Emergency Provider Nurse Practitioner Family
DX: J01.90 Acute sinusitis, unspecified (principal); R05.9 Cough, unspecified; I10 Essential (primary) hypertension
CPT/HCPCS: 99212; 99214; G0463

== ENCOUNTER 2023-06-30 12:22 | Emergency (ER) | payer MEDICARE, MEDICAID, SELFPAY ==
[2023-06-30 14:05] VITALS: BP 142/87; PULSE 93; RESP 18; TEMP 37.2; O2SAT 99; BMI 50.8
--- NOTE | 2023-06-30 14:25 | EXP.UTC ---
Discharge Plan Disposition Patient Disposition: Home, Self-Care Condition: Good Prescriptions Prescriptions: New amoxicillin-pot clavulanate 875-125 mg Tablet 1 tab PO Q12H Qty: 20 0RF fluticasone propionate [Flonase Allergy Relief] 50 mcg/actuation spray,suspension 1 - 2 spray intranasal DAILY Qty: 16 0RF Rx Instructions: administer into each nostril daily prednisone [prednisone] 20 mg tablet 20 mg PO BID 5 Days Qty: 10 0RF benzonatate 100 mg capsule 100 mg PO TID PRN (Reason: cough) Qty: 30 0RF guaifenesin [Mucinex] 600 mg tablet extended release 12hr 1,200 mg PO BID PRN (Reason: cough) Qty: 20 0RF No Action lisinopril 20 MG tablet 20 mg PO DAILY metoprolol succinate 25 MG tablet extended release 24 hr 25 mg PO DAILY Referrals Follow up/Referrals: Provider,Referral, MD [Primary Care Provider] - See instructions Activity Restrictions/Add. Instructions Additional Instructions/Restrictions: Start antibiotic today. Be sure to complete entire prescription even if feeling better Monitor temp. Tylenol every 4 hours as needed and / or ibuprofen every 6 hours as needed ( As long as your primary care physician has told you that it ok to take both. For fever/aches/pains ER if no less than 101 despite Tylenol or Motrin Humidifier/vaporizer or hot steamy shower Mucinex during the day for your cough and cough suppressant only at night. Be sure to drink lots of water. *Tessalon Perles will not cause drowsiness but use at bedtime to help stop cough so that you may get some rest. *Start steroid today. Helps with inflammation therefore, cough and wheezing. Follow directions on the package. Reviewed side effects. Patient reports taking them before. Follow up IMMEDIATELY for new or worsening of symptoms OR no noticeable improvement over the next 48-72 hours. 911 immediately for any life threatening symptoms such as chest pain or difficulty breathing Clinical Impressions Clinical Impression: Sinusitis Qualifiers: Sinusitis location: unspecified location Chronicity: unspecified Qualified Code(s): J32.9 - Chronic sinusitis, unspecified Instructions Patient Instructions: DI for Sinusitis, Sinusitis Discharge ED Provider: Tamika Lorenzo [facility] General Stated complaint: sinus infection pressure, cough, Mode of Arrival: Ambulatory Source of Information: Patient Limitations: No Limitations Time Seen by Provider: 06/30/23 14:25 Description of Symptoms (Recalled from Triage Doc. by RN): PATIENT C/O SINUS PRESSURE, HEADACHE AND COUGH X 4 DAYS HEENT Symptoms (Recalled from RN notes): Yes Resp Symptoms (Recalled from RN notes): Yes Skin Symptoms (Recalled from RN notes): No MS Symptoms (Recalled from RN notes): No Functional Status (Recalled from RN notes): WNL History of Present Illness Provider Complaint: Patient states that she has been fighting and sinus infection for about a week but it has got worse over the last 4 days States that she is having pain and pressure behind her eyes sinus headache and cough States today she felt like it was trying to move into her chest so she came in to get checked before it got worse Related Data Home Medications Medication Instructions Recorded Confirmed lisinopril 20 mg tablet 20 mg PO DAILY Hypertension 12/15/21 06/30/23 metoprolol succinate 25 mg 25 mg PO DAILY Hypertension 12/15/21 06/30/23 tablet,extended release 24 hr Previous Rx's Medication Instructions Recorded amoxicillin 875 mg-potassium 1 tab PO Q12H #20 tabs 06/30/23 clavulanate 125 mg tablet benzonatate 100 mg capsule 100 mg PO TID PRN cough #30 caps 06/30/23 fluticasone propionate 50 1 - 2 spray intranasal DAILY #16 06/30/23 mcg/actuation nasal grams spray,suspension (Flonase Allergy Relief) guaifenesin 600 mg tablet, 1,200 mg PO BID PRN cough #20 tabs 06/30/23 extended release 12 hr (Mucinex) prednisone 20 mg ta
[2023-06-30 14:37] VITALS: BP 142/87; PULSE 93; RESP 18; TEMP 37.2; O2SAT 99
== END 2023-06-30 14:40 | disposition home or self-care (01) ==
PROVIDERS: Emergency Provider Nurse Practitioner
DX: J01.90 Acute sinusitis, unspecified (principal); R51.9 Headache, unspecified; R09.81 Nasal congestion; R05.9 Cough, unspecified; I10 Essential (primary) hypertension
CPT/HCPCS: 99212; 99214; G0463

== ENCOUNTER 2023-10-01 20:16 | Outpatient (CLI) | payer MEDICARE, MEDICAID, SELFPAY ==
[2023-10-01 16:28] LABS: Alanine Aminotransferase 54 U/L (12-78); Albumin Level 4.3 g/dl (3.5-5.0); Albumin/Globulin Ratio 1.6 (1.1-1.8); Alkaline Phosphatase 67 U/L (38-126); Anion Gap 16.9 mEq/L (5-15); Aspartate Amino Transferase 40 U/L (14-36); Bilirubin,Total 1.1 mg/dl (0.2-1.3); Blood Urea Nitrogen 18 mg/dl (7-17); Calcium 9.6 mg/dl (8.4-10.2); Carbon Dioxide 26 mmol/L (22.0-30.0); Chloride 102 mmol/L (98-107); Chol/HDL Ratio 6.9 (1-3.5); Cholesterol 248 mg/dl (140-200); Estimated Glomerular Filt Rate 74 ml/min (>60); GFR (African American) 89 ML/MIN (>60); Globulin 2.7 g/dL (1.3-3.2); Glucose 125 mg/dl (74-100); HDL Cholesterol 36 mg/dl (40-60); Potassium 4.9 mmoL/L (3.5-5.1); Sodium 140 mmol/L (136-145); Triglycerides 184 mg/dl (30-150); VLDL Cholesterol 37 mg/dL (0-40)
[2023-10-01 16:31] LABS: Basophils % 0.4 % (0.1-2.0); Eosinophils # 0.2 K/mm3 (0.0-0.4); Eosinophils % 2.9 % (0.1-12.0); Hematocrit 41.6 % (37.0-47.0); Hemoglobin 13.7 g/dL (12.2-16.2); Lymphocytes % 27.7 % (10-50); Mean Corpuscular Hemoglobin 32.4 pg (27.0-31.2); Mean Corpuscular Volume 98.3 fl (81-99); Mean Platelet Volume 10.2 fl (7.4-10.4); Monocytes # 0.5 K/mm3 (0.1-1.0); Monocytes % 6.9 % (1.7-9.3); Neutrophils # 4.4 K/mm3 (1.8-7.8); Neutrophils % 62.1 % (37.0-80.0); Platelet Count 249 K/mm3 (142-424); Red Blood Count 4.24 M/mm3 (4.20-5.40); White Blood Count 7.1 K/mm3 (4.8-10.8)
[2023-10-01 16:39] LABS: Direct LDL Cholesterol 142.53 mg/dL (100-129)
[2023-10-01 17:17] LABS: Vitamin B12 719 pg/mL (239-931)
== END 2023-10-01 23:59 ==
LOC: LAB.DROPOF 20:17
PROVIDERS: PCP Nurse Practitioner Family; Visit Provider Nurse Practitioner Family
DX: I10 Essential (primary) hypertension (principal); R20.2 Paresthesia of skin; R73.09 Other abnormal glucose
CPT/HCPCS: 80053; 80061; 82607; 84443; 85025

== ENCOUNTER 2023-10-02 10:29 | Outpatient (CLI) | payer MEDICARE, MEDICAID, SELFPAY ==
[2023-10-02 15:31] LABS: Hemoglobin A1C 5.6 % (4.0-6.0)
== END 2023-10-02 23:59 ==
PROVIDERS: PCP Nurse Practitioner Family; Visit Provider Nurse Practitioner Family
DX: R73.09 Other abnormal glucose (principal)
CPT/HCPCS: 83036

== ENCOUNTER 2024-01-13 18:00 | Outpatient (CLI) | payer MEDICARE, MEDICAID, SELFPAY ==
[2024-01-13 17:46] LABS: Basophils % 0.7 % (0.1-2.0); Eosinophils # 0.3 K/mm3 (0.0-0.4); Hematocrit 38.4 % (37.0-47.0); Hemoglobin 12.6 g/dL (12.2-16.2); Lymphocytes # 1.8 K/mm3 (0.7-4.5); Mean Corpuscular HGB Conc 32.9 g/dL (31.8-35.4); Mean Corpuscular Hemoglobin 31.8 pg (27.0-31.2); Mean Corpuscular Volume 96.8 fl (81-99); Mean Platelet Volume 10.2 fl (7.4-10.4); Monocytes # 0.4 K/mm3 (0.1-1.0); Monocytes % 6.4 % (1.7-9.3); Neutrophils % 54.9 % (37.0-80.0); Platelet Count 236 K/mm3 (142-424); Red Blood Count 3.97 M/mm3 (4.20-5.40); Red Cell Distribution Width 13.4 % (11.5-17.5); White Blood Count 5.5 K/mm3 (4.8-10.8)
[2024-01-13 18:26] LABS: Chloride 108 mmol/L (98-107); Sodium 140 mmol/L (136-145)
[2024-01-13 18:27] LABS: Potassium 4.3 mmoL/L (3.5-5.1)
[2024-01-13 18:29] LABS: Alanine Aminotransferase 58 U/L (12-78); Albumin Level 3.9 g/dl (3.5-5.0); Albumin/Globulin Ratio 1.4 (1.1-1.8); Alkaline Phosphatase 62 U/L (38-126); Anion Gap 12.3 mEq/L (5-15); Aspartate Amino Transferase 42 U/L (14-36); Bilirubin,Total 0.9 mg/dl (0.2-1.3); Blood Urea Nitrogen 16 mg/dl (7-17); Carbon Dioxide 24 mmol/L (22.0-30.0); Cholesterol 223 mg/dl (140-200); Estimated Glomerular Filt Rate 74 ml/min (>60); GFR (African American) 89 ML/MIN (>60); Globulin 2.7 g/dL (1.3-3.2); Total Protein,Serum 6.6 g/dl (6.3-8.2); Triglycerides 220 mg/dl (30-150); VLDL Cholesterol 44 mg/dL (0-40)
[2024-01-13 18:30] LABS: Calcium 9.3 mg/dl (8.4-10.2); Chol/HDL Ratio 6.6 (1-3.5); Glucose 130 mg/dl (74-100); HDL Cholesterol 34 mg/dl (40-60)
[2024-01-13 18:49] LABS: Direct LDL Cholesterol 123.32 mg/dL (100-129)
== END 2024-01-13 23:59 | disposition home or self-care (01) ==
LOC: LAB.DROPOF 01-14 09:22
PROVIDERS: PCP Nurse Practitioner Family; Visit Provider Nurse Practitioner Family
DX: E78.5 Hyperlipidemia, unspecified (principal)
CPT/HCPCS: 80053; 80061; 85025

== ENCOUNTER 2024-07-10 10:16 | Emergency (ER) | payer MEDICARE, MEDICAID, SELFPAY ==
[2024-07-10] VITALS (15 sets, daily range): BP systolic 122–177; BP diastolic 78–97; PULSE 71–91; RESP 14–23; TEMP 36.5–36.7; O2SAT 95–99; BMI 34.9
--- NOTE | 2024-07-10 10:21 | ECG_ITS ---
APPROVED REPORT Exam: Resting ECG HR:88 bpm ECG Measurements Heart Rate 88 AXES LA 150 P 42 QRSd 110 QRS 0 QT 349 T 22 QTc 395 Conclusion SINUS RHYTHM LOW QRS VOLTAGE IN PRECORDIAL LEADS [QRS DEFLECTION < 1.0 mV IN CHEST LEADS] INCOMPLETE RIGHT BUNDLE BRANCH BLOCK [90+ ms QRS DURATION, TERMINAL R IN V1/V2, 40+ ms S IN I/aVL/V4/V5/V6] BORDERLINE ECG UNCONFIRMED REPORT Electronically signed by : HUBER POE, 07/12/2024 04:34:25
--- NOTE | 2024-07-10 10:37 | XR_ITS ---
FINAL REPORT CLINICAL HISTORY: lightheaded, recent sob/cough COMPARISON: None FINDINGS: Two views of the chest were obtained. The heart size and pulmonary vascularity are within normal limits. The mediastinum is normal. No acute pulmonary abnormality is identified. There is no pneumothorax. The bony thorax is intact. IMPRESSION: No active cardiopulmonary disease. Reviewed, Interpreted and Dictated by Nathan Reza III, MD Transcribed by Zena Rivas Authenticated and [facility]
[2024-07-10 10:47] LABS: Basophils # 0.1 K/mm3 (0-0.2); Eosinophils # 0.2 K/mm3 (0.0-0.4); Eosinophils % 3.2 % (0.1-12.0); Hematocrit 39.7 % (37.0-47.0); Hemoglobin 14.2 g/dL (12.2-16.2); Lymphocytes # 2.3 K/mm3 (0.7-4.5); Lymphocytes % 35.6 % (10-50); Mean Corpuscular HGB Conc 35.6 g/dL (31.8-35.4); Mean Corpuscular Hemoglobin 33.3 pg (27.0-31.2); Mean Corpuscular Volume 93.4 fl (81-99); Mean Platelet Volume 8.6 fl (7.4-10.4); Monocytes # 0.4 K/mm3 (0.1-1.0); Monocytes % 5.6 % (1.7-9.3); Neutrophils # 3.6 K/mm3 (1.8-7.8); Neutrophils % 54.7 % (37.0-80.0); Platelet Count 268 K/mm3 (142-424); Red Blood Count 4.26 M/mm3 (4.20-5.40); Red Cell Distribution Width 13.3 % (11.5-17.5); White Blood Count 6.5 K/mm3 (4.8-10.8)
[2024-07-10 10:52] LABS: Chloride 104 mmol/L (98-107); Potassium 4.3 mmoL/L (3.5-5.1); Sodium 138 mmol/L (136-145)
[2024-07-10 10:55] LABS: Anion Gap 10.3 mEq/L (5-15); Blood Urea Nitrogen 15 mg/dl (7-17); Calcium 9.7 mg/dl (8.4-10.2); Carbon Dioxide 28 mmol/L (22.0-30.0); Creatinine Clearance Estimated 115 mL/min (50-200); Estimated Glomerular Filt Rate 74 ml/min (>60); GFR (African American) 89 ML/MIN (>60); Glucose 122 mg/dl (74-100)
[2024-07-10 11:08] LABS: Troponin I < 0.01 ng/ml (0.00-0.034)
[2024-07-10 11:36] LABS: HIV (1&2) Antibody Rapid NONREACTIVE (NONREACTIVE)
--- NOTE | 2024-07-10 11:45 | HMH.EDGENADL ---
Discharge Plan Disposition Patient Disposition: Home, Self-Care Condition: Good Prescriptions Prescriptions: No Action omega-3 fatty acids 500 mg capsule 500 mg PO DAILY biotin 10,000 mcg capsule 10,000 mcg PO DAILY acetaminophen [Tylenol Extra Strength] 500 mg tablet 1,000 mg PO BID losartan 100 mg tablet 100 mg PO DAILY Qty: 30 2RF ezetimibe [Zetia] 10 mg tablet 10 mg PO DAILY Qty: 30 2RF Referrals Follow up/Referrals: Tanna Wise APRN [Primary Care Provider] - See instructions Activity Restrictions/Add. Instructions Additional Instructions/Restrictions: Please follow-up with primary care provider regarding today's visit, your blood pressure medication will possibly need to be altered given ongoing elevated blood pressure for the last few weeks. Should your symptoms worsen please return to ED. Clinical Impressions Clinical Impression: Hypertension, Viral syndrome Print Language Print Language: Norwegian Discharge ED Provider: Barry Mary General Adult HPI General Chief complaint: Dizziness Stated complaint: high bp x 3 days, feels off Time Seen by Provider: 07/10/24 10:21 Mode of Arrival: Family Vehicle Source of Information: Patient and Medical Record Limitations: No Limitations Description of Symptoms (Recalled from ER Triage Doc. by RN): Pt presents to ER with concerns of elevated BP, dizziness, and exertional SOA. She takes Losartan every morning and reports she has felt these symptoms for several days, with highest BP 155/102. She has been checking her BP d/t the symtoms she was having. Denies any chest pain. Denies any headache or vision changes. She has been feeling very thirsty and dry mouth but reports to eating and drinking well. History of Present Illness HPI narrative: 59-year-old female presents to ED with complaint of elevated blood pressure for the last few weeks, some lightheadedness, occasional shortness of breath and intermittent chest pain for the last few days. Past medical history of hypertension. Denies shortness of breath, lightheadedness, chest pain at this time. Patient takes losartan at home. Highest blood pressure at home 155/102. Denies headache, vision changes, other symptoms at this time beyond some recent upper respiratory virus symptoms of runny nose, nasal congestion, states she sometimes gets sinus infections. Denies other symptoms concerns at this time. Please note that above description of symptoms, in this electronic medical record under categorization of recalled from ER triage doctor by RN are reflective of an initial nursing assessment, however, is not reflective of my full history and physical exam that was personally taken and clarified. Consequentially, this preceding description of symptoms, which may include the patient's categorized chief complaint in the EMR, do not reflect my personal clinical impression, and the ultimate description of history of present illness and patient stated complaints should be deferred to this section of the note. Unless stated otherwise or congruent with this section of the note, additional signs, symptoms, or incongruence should be interpreted as inaccurate with my clinical impression. Related Data Home Medications ?Medication ?Instructions ?Recorded ?Confirmed acetaminophen 500 mg tablet 1,000 mg PO BID 09/30/23 07/10/24 (Tylenol Extra Strength) biotin 10,000 mcg capsule 10,000 mcg PO DAILY 09/30/23 07/10/24 omega-3 fatty acids 500 mg capsule 500 mg PO DAILY 09/30/23 07/10/24 Previous Rx's ?Medication ?Instructions ?Recorded losartan 100 mg tablet 100 mg PO DAILY #30 tabs 01/13/24 ezetimibe 10 mg tablet (Zetia) 10 mg PO DAILY #30 tabs 01/14/24 Allergies Allergy/AdvReac Type Severity Reaction Status Date / Time codeine AdvReac Severe Chest Pain Verified 07/10/24 10:37 [facility] Disclaimer: The information contained in this section may have been updated after the patient was seen, as this information can be updated by other users. Medical History UTI (urinary tract infection) Hypertension Accidental drug ingestion Sinusitis Low back pain Surgical History H/O hernia repair History of tubal ligation History of cholecystectomy Family History Father Cancer Throat/lung Social History Smoking Status: Never smoker alcohol intake: never substance use type: denies use current occupational status: employed Travel in the last 8 weeks: None household members: significant other and children housing: house Other Medical History Have you received the Flu Vaccine for this season: No Have you received the Pneumonia Vaccine: No ROS Obtained: Yes Systems reviewed as appropriate & no additional complaints except as documented Physical Exam General General appearance: alert and in no apparent distress Head Head exam: atraumatic and normocephalic Eye Eye exam: Present normal appearance, PERRL and EOMI ENT ENT exam: Present normal exam and normal oropharynx; Absent mucous membranes dry Neck Neck exam: Present normal inspection and full ROM Chest Chest inspection: Present normal inspection and symmetric chest wall rise; Absent tenderness Respiratory Respiratory exam: Present normal lung sounds bilaterally; Absent respiratory distress, wheezes or stridor Cardiovascular Cardiovascular exam: Present regular rate, normal rhythm and normal heart sounds Abdominal Exam Abdominal exam: Present soft and normal bowel sounds; Absent distention, tenderness, guarding or rebound Extremities Exam Extremities exam: Present normal inspection, full ROM and normal capillary refill; Absent tenderness Back Exam Back exam: Present normal inspection Neurological Exam Neurological exam: Present alert, oriented X3 and CN II-XII intact; Absent motor sensory deficit Psychiatric Psychiatric exam: Present normal affect and normal mood Skin Skin exam: Present warm, dry, intact and normal color; Absent rash Medical Decision Making Medical Records Medical records reviewed: Yes I reviewed the patient's medical records. Screening: Per USPSTF and CDC recommendations, given the prevalence of disease in our region, it is our hospital?s policy to screen for HIV and viral Hepatitis for all patients aged 18 and over and those with ongoing risk factors. Jaime Inquiry Pt receiving controlled substance: No Vital Signs: 07/10/24 10:17 07/10/24 10:22 07/10/24 10:30 Temperature 97.7 F Temperature Source Oral Pulse Rate 91 H 82 Pulse Rate [Orthostatic Lying Right Brachial] Pulse Rate [Orthostatic Sitting Right Brachial] Pulse Rate [Orthostatic Standing Right Brachial] Pulse Rate [Right] 89 Respiratory Rate 23 21 Blood Pressure 177/87 H 137/79 Blood Pressure [Orthostatic Lying Right Arm] Blood Pressure [Orthostatic Sitting Right Arm] Blood Pressure [Orthostatic Standing Right Arm] Blood Pressure [Right Arm] 177/87 H Blood Pressure Mean Blood Pressure Mean [Right Arm] 117 Blood Pressure Source [Right Arm] Automatic Cuff 02 Sat by Pulse Oximetry 96 98 96 Oxygen Delivery Method Room Air Room Air Room Air 07/10/24 10:31 07/10/24 10:45 07/10/24 11:01 Temperature Temperature Source Pulse Rate 84 78 78 Pulse Rate [Orthostatic Lying Right Brachial] Pulse Rate [Orthostatic Sitting Right Brachial] Pulse Rate [Orthostatic Standing Right Brachial] Pulse Rate [Right] Respiratory Rate 22 14 Blood Pressure 139/79 128/78 Blood Pressure [Orthostatic Lying Right Arm] Blood Pressure [Orthostatic Sitting Right Arm] Blood Pressure [Orthostatic Standing Right Arm] Blood Pressure [Right Arm] Blood Pressure Mean 91 Blood Pressure Mean [Right Arm] Blood Pressure Source [Right Arm] 02 Sat by Pulse Oximetry 95 96 96 Oxygen Delivery Method Room Air Room Air 07/10/24 11:15 07/10/24 11:22 07/10/24 11:23 Temperature Temperature Source Pulse Rate 78 71 80 Pulse Rate [Orthostatic Lying Right Brachial] Pulse Rate [Orthostatic Sitting Right Brachial] Pulse Rate [Orthostatic Standing Right Brachial] Pulse Rate [Right] Respiratory Rate 18 18 15 Blood Pressure 122/81 146/97 H Blood Pressure [Orthostatic Lying Right Arm] Blood Pressure [Orthostatic Sitting Right Arm] Blood Pressure [Orthostatic Standing Right Arm] Blood Pressure [Right Arm] Blood Pressure Mean Blood Pressure Mean [Right Arm] Blood Pressure Source [Right Arm] 02 Sat by Pulse Oximetry 95 97 97 Oxygen Delivery Method 07/10/24 11:24 07/10/24 11:28 07/10/24 11:30 Temperature Temperature Source Pulse Rate 90 74 Pulse Rate [Orthostatic Lying Right Brachial] 81 Pulse Rate [Orthostatic Sitting Right Brachial] 77 Pulse Rate [Orthostatic Standing Right Brachial] 90 Pulse Rate [Right] Respiratory Rate 16 17 Blood Pressure 140/97 H Blood Pressure [Orthostatic Lying Right Arm] 122/81 Blood Pressure [Orthostatic Sitting Right Arm] 146/97 H Blood Pressure [Orthostatic Standing Right Arm] 140/97 H Blood Pressure [Right Arm] Blood Pressure Mean Blood Pressure Mean [Right Arm] Blood Pressure Source [Right Arm] 02 Sat by Pulse Oximetry 97 96 Oxygen Delivery Method 07/10/24 11:31 07/10/24 11:45 Temperature Temperature Source Pulse Rate 73 73 Pulse Rate [Orthostatic Lying Right Brachial] Pulse Rate [Orthostatic Sitting Right Brachial] Pulse Rate [Orthostatic Standing Right Brachial] Pulse Rate [Right] Respiratory Rate 17 18 Blood Pressure 153/89 H Blood Pressure [Orthostatic Lying Right Arm] Blood Pressure [Orthostatic Sitting Right Arm] Blood Pressure [Orthostatic Standing Right Arm] Blood Pressure [Right Arm] Blood Pressure Mean Blood Pressure Mean [Right Arm] Blood Pressure Source [Right Arm] 02 Sat by Pulse Oximetry 96 99 Oxygen Delivery Method Lab Data Lab Results 07/10/24 10:23: WBC 6.5, RBC 4.26, Hgb 14.2, Hct 39.7, MCV 93.4, MCH 33.3 H, MCHC 35.6 H, RDW 13.3, Plt Count 268, MPV 8.6, Neut % (Auto) 54.7, Lymph % (Auto) 35.6, [place] % (Auto) 5.6, Eos % (Auto) 3.2, Baso % (Auto) 1.0, Neut # (Auto) 3.6, Lymph # (Auto) 2.3, [place] # (Auto) 0.4, Eos # (Auto) 0.2, Baso # (Auto) 0.1, Sodium 138, Potassium 4.3, Chloride 104, Carbon Dioxide 28, Anion Gap 10.3, BUN 15, Creatinine 0.80, Estimated Creat Clear 115, Estimated GFR 74, Est GFR ( Amer) 89, Glucose 122 H, Calcium 9.7, Troponin I < 0.01, HIV 1&2 Antibody Rapid Nonreactive 07/10/24 10:23 07/10/24 10:23 Orders (Tests/Meds): ED MEDICATIONS Generic Name Dose Route Start Last Admin Trade Name Freq PRN Reason Stop Dose Admin Sodium Chloride 10 ml 07/10/24 10:37 Sodium Chloride 0.9% 10ml Flush Syringe IV 08/09/24 10:36 NEEDED PRN Maintain IV Site ORDERS Category Date Time Status XR chest 2V Stat Exams 07/10/24 10:37 Completed BMP [Basic Metabolic Panel] Stat Lab 07/10/24 10:23 Completed CBC w/Auto Diff [Complete Blood Count Auto Diff] Stat Lab 07/10/24 10:23 Completed HIV (1&2) Antibody Rapid Stat Lab 07/10/24 10:23 Completed Hep C Ab with Reflex to RNA Stat Lab 07/10/24 10:23 Received Trop T [Troponin I] Stat Lab 07/10/24 10:23 Completed ECG Data Tracing #1: I reviewed this ECG and interpreted as documented below: Normal sinus rhythm, normal axis, incomplete right bundle branch block noted, no noted ST elevation, no otherwise noted ectopy HEART Score History (anamnesis): Slightly suspicious ECG: Non-specific disturbance Age: 45-65 years Risk factors: 1-2 risk factors Troponin: </= normal limit HEART Score: 3 Medical Decision Narrative: Patient with history and exam per above presenting for evaluation of multiple complaints including intermittent chest pain, elevated blood pressure for the last few weeks, intermittent shortness of breath, upper respiratory viral symptoms, intermittent lightheadedness Diagnoses considered include URI, CAD, BPPV, CVA, medication noncompliance, medication underdosing, resistant hypertension ED workup and treatment included: As above Labs were independently interpreted by me, significant for negative troponin, nonactionable CBC, nonactionable CMP Imaging was independently visualized and interpreted by me, significant for no acute cardiopulmonary process noted on my independent review and interpretation Please refer to radiology report for full details. My clinical impression at this time is most consistent with viral syndrome, hypertension. On reassessment patient remains hemodynamically stable. Orthostatic vitals within normal limits. At this time medically cleared for discharge with outpatient follow-up. Patient to return to ED if symptoms worsen otherwise to follow-up with primary care provider. Patient agreeable with plan. Discharged home with hemodynamically stable vitals. I discussed my clinical impression with patient and answered all questions. At this time, the evidence for any other entities in the differential is insufficient to warrant any further testing or ED observation. This was explained to the patient. The patient was advised that persistent or worsening symptoms require further evaluation. Critical Care Critical Care Time Critical Care Time: No
[2024-07-11 09:01] LABS: HCV Ab Non Reactive (Non Reactive)
== END 2024-07-10 12:40 | disposition home or self-care (01) ==
PROVIDERS: Emergency Provider Student in an Organized Health Care Education/Training Program; PCP Nurse Practitioner Family
DX: B34.9 Viral infection, unspecified (principal); R42 Dizziness and giddiness; R06.09 Other forms of dyspnea; I10 Essential (primary) hypertension; R07.9 Chest pain, unspecified
CPT/HCPCS: 71046; 80048; 84484; 85025; 86803; 87389; 93005; 99284

== ENCOUNTER 2024-07-26 14:32 | Emergency (ER) | payer MEDICARE, MEDICAID, SELFPAY ==
[2024-07-26 15:55] VITALS: BP 147/90; PULSE 79; RESP 21; TEMP 36.7; O2SAT 98; BMI 52.2
--- NOTE | 2024-07-26 16:09 | ED_ITS ---
Discharge Plan Disposition Patient Disposition: Home, Self-Care Condition: Good Prescriptions Prescriptions: New benzonatate 100 mg capsule 100 mg PO TID PRN (Reason: cough) Qty: 30 0RF methylprednisolone [Medrol (Kristofer)] 4 mg tablets,dose pack See Rx Instructions .Route .COMPLEX 6 Days Qty: 21 0RF Rx Instructions: taper pack; amoxicillin-pot clavulanate 875-125 mg Tablet 1 tab PO Q12H Qty: 20 0RF guaifenesin [Mucinex] 600 mg tablet extended release 12hr 600 mg PO BID PRN (Reason: cough) Qty: 20 0RF No Action losartan 100 mg tablet 100 mg PO DAILY Qty: 30 2RF Referrals Follow up/Referrals: Sunny Morse MD [Primary Care Provider] - See instructions Activity Restrictions/Add. Instructions Additional Instructions/Restrictions: *Monitor Temp, Over the counter Motrin or Tylenol as directed/as needed Tylenol every 4 hours and Motrin every 6 hours (as long as your family doctor has told you that you can take it) for fever or pain. and straight to ER if unable to lower temp less than 101.0 after medication given *Take medication as prescribed *Sleep elevated *Humidifier/Vaporizer * Follow up IMMEDIATELY for new or worsening symptoms or no Noticeable improvement over the next 48-72 hours. 911 for difficulty breathing or swallowing Clinical Impressions Clinical Impression: Sinusitis Instructions Patient Instructions: DI for Sinusitis, Sinusitis Print Language Print Language: Botswanan Discharge ED Provider: Maritza Live [facility] [place] HPI General Stated complaint: congestion, headache, runny nose Mode of Arrival: Ambulatory Source of Information: Patient Limitations: No Limitations Time Seen by Provider: 07/26/24 16:10 Description of Symptoms (Recalled from Triage Doc. by RN): PATIENT C/O COUGH, NASAL CONGESTION, HEADACHE, AND SINUS PAIN AND PRESSURE HEENT Symptoms (Recalled from RN notes): Yes Resp Symptoms (Recalled from RN notes): Yes Skin Symptoms (Recalled from RN notes): No MS Symptoms (Recalled from RN notes): No Functional Status (Recalled from RN notes): WNL History of Present Illness Provider Complaint: Patient states that she feels like she has a sinus infection States that she has been having sinus pain and pressure, cough, nasal congestion and pressure behind her eyes, States that today she came in to get checked Related Data Previous Rx's ?Medication ?Instructions ?Recorded losartan 100 mg tablet 100 mg PO DAILY #30 tabs 07/13/24 amoxicillin 875 mg-potassium 1 tab PO Q12H #20 tabs 07/26/24 clavulanate 125 mg tablet benzonatate 100 mg capsule 100 mg PO TID PRN cough #30 caps 07/26/24 guaifenesin 600 mg tablet, 600 mg PO BID PRN cough #20 tabs 07/26/24 extended release 12 hr (Mucinex) methylprednisolone 4 mg tablets in See Rx Instructions .Route 07/26/24 a dose pack (Medrol (Kristofer)) .COMPLEX 6 days #21 tabs Allergies Allergy/AdvReac Type Severity Reaction Status Date / Time codeine AdvReac Severe Chest Pain Verified 07/13/24 15:01 Worker's Comp Is this a Worker's Comp case?: No [facility] Disclaimer: The information contained in this section may have been updated after the patient was seen, as this information can be updated by other users. Medical History UTI (urinary tract infection) Hypertension Accidental drug ingestion Sinusitis Low back pain Surgical History H/O hernia repair History of tubal ligation History of cholecystectomy Family History Father Cancer Throat/lung Social History Smoking Status: Never smoker alcohol intake: never substance use type: denies use current occupational status: employed Travel in the last 8 weeks: None household members: significant other and children housing: house Have you lived/traveled outside [place] in past 30 days?: No Contact w/someone who lives/traveled outside [place] past 30 days?: No Exposure to someone with infectious disease in past 14 days?: No Do you have a fever (greater than 100.4 F or 38 C)?: No Have you tested positive for COVID-19: No Exposed to someone with COVID-19 in past 14 days?: No Do you have a sore throat?: No Do you have a cough?: No Do you have any weakness?: No Do you have any diarrhea?: No Are you experiencing any unusual bleeding?: No Do you have any muscle aches/pain?: No Do you have any abdominal pain?: No Are you experiencing loss of taste or smell?: No ROS Obtained: Yes All systems reviewed & no additional complaints except as documented and Yes Systems reviewed as appropriate & no additional complaints except as documented Constitutional Constitutional: Reports system reviewed and no additional complaints, except as documented, Reports as per HPI and Reports headache(s) ENT Ears, Nose, Mouth, and Throat: Reports system reviewed and no additional com plaints, except as documented, Reports as per HPI, Reports headache(s), Reports sinus pain, Reports sinus pressure and Reports sore throat Cardiovascular Cardiovascular: Reports system reviewed and no additional complaints, except as documented and Reports as per HPI Respiratory Respiratory: Reports system reviewed and no additional complaints, except as documented, Reports as per HPI, Denies shortness of breath, Denies chest congestion and Reports cough Gastrointestinal Gastrointestingal: Reports system reviewed and no additional complaints, except as documented and as per HPI Neurologic Neurologic: Reports headache(s) Physical Exam General General appearance: alert and in no apparent distress ENT ENT exam: Present mucous membranes moist Expanded ENT Exam Nose exam: Present sinus tenderness Throat exam: Present other (Pharyngeal erythema noted with pND) Respiratory Respiratory exam: Present normal lung sounds bilaterally; Absent respiratory di stress or wheezes Cardiovascular Cardiovascular exam: Present regular rate, normal rhythm and normal heart sounds Abdominal Exam Abdominal exam: Present soft and normal bowel sounds; Absent distention or tenderness Neurological Exam Neurological exam: Present alert, oriented X3 and normal gait Medical Decision Making Medical Records Screening: Per USPSTF and CDC recommendations, given the prevalence of disease in our region, it is our hospital?s policy to screen for HIV and viral Hepatitis for all patients aged 18 and over and those with ongoing risk factors. Jaime Inquiry Pt receiving controlled substance: No Jaime was queried for this patient: No Vital Signs: 07/26/24 15:55 Temperature 98.1 F Temperature Source Oral Pulse Rate [Left Brachial] 79 Respiratory Rate 21 Blood Pressure [Left Arm] 147/90 H Blood Pressure Mean [Left Arm] 109 Blood Pressure Source [Left Arm] Automatic Cuff Blood Pressure Position [Left Arm] Sitting 02 Sat by Pulse Oximetry 98 Oxygen Delivery Method Room Air
[2024-07-26 16:20] VITALS: BP 147/90; PULSE 79; RESP 21; TEMP 36.7; O2SAT 98
== END 2024-07-26 16:23 | disposition home or self-care (01) ==
PROVIDERS: Emergency Provider Nurse Practitioner; PCP Family Medicine
DX: J01.90 Acute sinusitis, unspecified (principal)
CPT/HCPCS: 99213; G0381